=== PATIENT | male | born 1955 | race Caucasian/White ===

== ENCOUNTER 2019-08-29 08:28 | Observation (INO) ==
[2019-08-29] MEDS ORDERED: NS 1,000 ML IV ONE ×2 (08:38→10:33)
[2019-08-29] MEDS ORDERED: ATIVAN IV ONE ×3 (08:45→10:07)
--- NOTE | 2019-08-29 08:45 | EKG Report ---
Test Performed on : 08/29/2019 08:40:42 AM Test Reason : overdose Blood Pressure : / mmHG Vent. Rate : 132 BPM Atrial Rate : 132 BPM P-R Int : 148 ms QRS Dur : 086 ms QT Int : 298 ms P-R-T Axes : 000 160 142 degrees QTc Int : 441 ms Sinus tachycardia. Left posterior fascicular block Inferior infarct , age undetermined Abnormal ECG When compared with ECG of 25-JUN-2017 01:28, Vent. rate has increased BY 51 BPM Left posterior fascicular block is now present Inferior infarct is now present Unconfirmed Result
--- NOTE | 2019-08-29 08:46 | PROVIDER DOCUMENTATION ---
HPI-Psychological Disorder - General Stated Complaint: OVERDOSE Time Seen by Provider: 08/29/19 08:33 Source: family, EMS Allergies/Adverse Reactions: Patient Allergies Allergy/AdvReac Type Severity Reaction Status Date / Time No Known Allergies Allergy Verified 08/29/19 09:47 Home Medications: Home Medication List Medication Instructions Recorded Confirmed Last Taken Type Bupropion [Wellbutrin] 100 mg PO QAM 09/20/14 08/29/19 09/18/14 History Omeprazole [Prilosec] 20 mg PO DAILY@0700 09/20/14 08/29/19 09/18/14 History Amlodipine [Norvasc] 1 tab PO DAILY 08/29/19 08/29/19 Unknown History Aripiprazole [Abilify] 1 tab PO DAILY 08/29/19 08/29/19 Unknown History Armodafinil [Nuvigil] 1 tab PO QAM 08/29/19 08/29/19 Unknown History Atorvastatin Calcium [Lipitor] 10 mg PO QHS 08/29/19 08/29/19 Unknown History Ibuprofen 1 tab PO PRN PRN 08/29/19 08/29/19 Unknown History Irbesartan [Avapro] 1 tab PO DAILY 08/29/19 08/29/19 Unknown History Lamotrigine [Lamotrigine ER] 1 tab PO DAILY 08/29/19 08/29/19 Unknown History Lurasidone HCl [Latuda] 1 tab PO DAILY 08/29/19 08/29/19 Unknown History Olanzapine [Zyprexa Zydis] 1 tab PO DAILY PRN 08/29/19 08/29/19 Unknown History Prednisone 1 tab PO DAILY PRN 08/29/19 08/29/19 Unknown History Propranolol [Inderal] 0.5 tab PO DAILY 08/29/19 08/29/19 Unknown History - History of Present Illness-Psych Nature of Presenting Problem: ED RN with bipolar disorder, recently quit job, having marital problems, OD on 40 5mg olanzapine about 1-1.5 hours [employer] in a suicide attempt. No history of SI in the past. Has had several admissions, 6-7 years ago for BPDO. Brought in by EMS. states he is also on other psych meds, unsure if he took any of those. Onset/Duration: reports: 1-3 hours ago Timing: reports: still present, getting worse Severity: reports: severe Situational problems related to:: reports: spouse, lost job Psychiatric Complaints: reports: altered mental status, depressed, suicidal ideation Substance Use: reports: none/never Previous psych related hospitalizations?: Yes Patient arrived by:: EMS called by spouse/family Similar Symptoms Previously?: No Recently seen or treated by another doctor?: No - Suicidal Ideation Suicide Risk Assessment: male sex, depressed, organized plan, bi-polar, frightened friends-family Clinician's estimation of suicide risk?: high risk Suicidal Attempt Method: reports: Overdose Review of Systems - Adult - REVIEW OF SYSTEMS - ADULT Constitutional: reports: no symptoms reported Eyes: reports: no symptoms reported Ears, Nose, Mouth & Throat: reports: no symptoms reported Cardiovascular: reports: no symptoms reported Respiratory: reports: no symptoms reported Gastrointestinal: reports: no symptoms reported Genitourinary: reports: no symptoms reported Musculoskeletal: reports: no symptoms reported Integumentary: reports: no symptoms reported Neurological: reports: no symptoms reported Psychiatric: reports: no symptoms reported Endocrine: reports: no symptoms reported Hematologic/Lymphatic: reports: no symptoms reported Allergic/Immunologic: reports: no symptoms reported All Other Systems: Reviewed and Negative Past History - Adult - PAST MEDICAL HISTORY-ADULT Review of Records: reports: Old Records Reviewed (Last psych admission 2012), Nursing Assessment Review, Medications Reviewed, Social history reviewed & non- contributory. Major Childhood Illnesses: reports: denies history Cardiovascular: reports: denies history Respiratory: reports: denies history Gastrointestinal: reports: denies history Obstetrical/Gynecological: reports: denies history Genitourinary: reports: denies history Musculoskeletal: reports: denies history Neurological: reports: denies history Psychiatric: reports: bipolar, depression, psychiatric problems Endocrine/Immune: reports: denies history Other Conditions: reports: denies history - PRIOR SURGERIES/PROCEDURES Surgical/Procedure History: reports: reviewed, not pertinent - IMMUNIZATION STATUS Childhood Immunizations: UTD Flu Vaccine: UTD - FAMILY HISTORY Family History: reviewed, not pertinent - SOCIAL HISTORY Smoking: quit greater than 1 year, cigarettes Substance Use: none/never Alcohol Use Frequency: occasionally Living Situation: family Physical Exam-Psych Focus - Physical Exam-Psych Initial Vital Signs Reviewed: Yes Appearance: impaired insight, impaired recent memory, impaired remote memory, lethargic (reaching for objects in air), moderate distress Neurological: alert, 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 negative: oriented x 3 Behavior/Eye Contact/Speech: refused to answer (unable) Thoughts/Hallucinations: visual hallucinations HENMT: normocephalic/atraumatic. negative: moist mucous membranes (dry) Neck: non-tender, full range of motion, supple, normal inspection Respiratory: chest non-tender, lungs clear, normal breath sounds, no pleuratic chest pain, no respiratory distress, no accessory muscle use, increased rate Cardiovascular: normal peripheral pulses, regular rate, rhythm, no edema, no gallop, no JVD, tachycardia Abdominal Exam: normal bowel sounds, non tender, soft, no organomegaly, no pulsatile mass Lymphatic: no adenopathy Back Exam: normal inspection, no vertebral tenderness Extremity: normal range of motion, non-tender, normal inspection, no pedal edema , no calf tenderness, normal capillary refill Integumentary: normal color, normal turgor Progress - PLAN OF CARE/RESULTS Progress/Plan/Lab Results: Vital Signs - 8 hr 08/29/19 08:53 Pulse Rate 132 H Respiratory Rate 26 H Blood Pressure 179/157 O2 Sat by Pulse Oximetry 95 Laboratory Results - last 24 hr 08/29/19 08/29/19 08/29/19 08:44 08:50 08:50 WBC RBC Hgb Hct MCV MCH MCHC RDW Std Deviation Plt Count MPV Immature Gran % (Auto) Neut % (Auto) Lymph % (Auto) [place] % (Auto) Eos % (Auto) Baso % (Auto) Immature Gran # (Auto) Neut # (Auto) Lymph # (Auto) [place] # (Auto) Eos # (Auto) Baso # (Auto) PT INR PTT (Actin FS) Specimen Type Sample Site pH pCO2 pO2 HCO3 Base Excess Oxyhemoglobin ABG O2 Sat (Calculated) ABG O2 Saturation ABG Carboxyhemoglobin ABG Methemoglobin [place] Test A-a O2 Difference Total Hemoglobin Lactate Liter Flow Blood Gas Modality FiO2 % POC Glucose 108 H Troponin T High Sens Urine Source Urine Color Urine Turbidity Urine pH Ur Specific Rock Urine Protein Ur Glucose (Stick) Ur Ketones (Stick) Urine Blood Urine Nitrite Urine Bilirubin Urobilinogen Dipstick Urine Leukocytes Urine WBC (Auto) Urine RBC (Auto) U Epithel Cells (Auto) Urine Bacteria (Auto) Urine Opiates Screen NONE DETECTED Ur Oxycodone Screen NONE DETECTED Ur Methadone, Qual NONE DETECTED Ur Barbiturates Screen NONE DETECTED Ur Phencyclidine Scrn NONE DETECTED Ur Amphetamines Screen NONE DETECTED U Benzodiazepines Scrn NONE DETECTED Urine Cocaine Screen NONE DETECTED U Cannabinoids Screen PRESUMPTIVE POSITIVE A Plasma/Serum Ethyl Alc 08/29/19 08/29/19 08/29/19 08:50 08:50 08:50 WBC 7.71 RBC 5.45 Hgb 15.5 Hct 46.4 MCV 85.1 MCH 28.4 MCHC 33.4 RDW Std Deviation 13.1 Plt Count 182 MPV 10.7 H Immature Gran % (Auto) 0.4 Neut % (Auto) 57.8 Lymph % (Auto) 30.1 [place] % (Auto) 9.5 H Eos % (Auto) 1.7 Baso % (Auto) 0.5 Immature Gran # (Auto) 0.03 Neut # (Auto) 4.46 Lymph # (Auto) 2.32 [place] # (Auto) 0.73 H Eos # (Auto) 0.13 Baso # (Auto) 0.04 PT INR PTT (Actin FS) Specimen Type Sample Site pH pCO2 pO2 HCO3 Base Excess Oxyhemoglobin ABG O2 Sat (Calculated) ABG O2 Saturation ABG Carboxyhemoglobin ABG Methemoglobin [place] Test A-a O2 Difference Total Hemoglobin Lactate Liter Flow Blood Gas Modality FiO2 % POC Glucose Troponin T High Sens 8 Urine Source CATH Urine Color STRAW Urine Turbidity CLEAR Urine pH 7.5 Ur Specific Rock 1.010 Urine Protein NEGATIVE Ur Glucose (Stick) NEGATIVE Ur Ketones (Stick) NEGATIVE Urine Blood NEGATIVE Urine Nitrite NEGATIVE Urine Bilirubin NEGATIVE Urobilinogen Dipstick NORMAL Urine Leukocytes NEGATIVE Urine WBC (Auto) <10 Urine RBC (Auto) <10 U Epithel Cells (Auto) <10 Urine Bacteria (Auto) NEGATIVE Urine Opiates Screen Ur Oxycodone Screen Ur Methadone, Qual Ur Barbiturates Screen Ur Phencyclidine Scrn Ur Amphetamines Screen U Benzodiazepines Scrn Urine Cocaine Screen U Cannabinoids Screen Plasma/Serum Ethyl Alc 08/29/19 08/29/19 08:50 09:10 WBC RBC Hgb Hct MCV MCH MCHC RDW Std Deviation Plt Count MPV Immature Gran % (Auto) Neut % (Auto) Lymph % (Auto) [place] % (Auto) Eos % (Auto) Baso % (Auto) Immature Gran # (Auto) Neut # (Auto) Lymph # (Auto) [place] # (Auto) Eos # (Auto) Baso # (Auto) PT 12.5 INR 0.93 PTT (Actin FS) 30.2 Specimen Type ARTERIAL Sample Site R BRACHIAL pH 7.48 H pCO2 40 pO2 74 HCO3 29.4 H Base Excess 5.8 H Oxyhemoglobin 95.0 ABG O2 Sat (Calculated) 22.2 ABG O2 Saturation 97.5 ABG Carboxyhemoglobin 1.80 ABG Methemoglobin 0.9 Keon Test NO A-a O2 Difference 76.0 Total Hemoglobin 16.6 Lactate 1.70 Liter Flow 2.0 Blood Gas Modality CANNULA FiO2 % 28.0 POC Glucose Troponin T High Sens Urine Source Urine Color Urine Turbidity Urine pH Ur Specific Rock Urine Protein Ur Glucose (Stick) Ur Ketones (Stick) Urine Blood Urine Nitrite Urine Bilirubin Urobilinogen Dipstick Urine Leukocytes Urine WBC (Auto) Urine RBC (Auto) U Epithel Cells (Auto) Urine Bacteria (Auto) Urine Opiates Screen Ur Oxycodone Screen Ur Methadone, Qual Ur Barbiturates Screen Ur Phencyclidine Scrn Ur Amphetamines Screen U Benzodiazepines Scrn Urine Cocaine Screen U Cannabinoids Screen Plasma/Serum Ethyl Alc Orders Category Date Time Status Cardiac Monitoring DIRECTED Care 08/29/19 08:36 Active Finger Stick Blood Sugar (ED) DIRECTED Care 08/29/19 08:36 Completed [place] Cath Insertion ORDERED Care 08/29/19 08:37 Active IV Insertion NOW Care 08/29/19 08:54 Active NEWS Score >or=5:Order NEWS Bundle S.O. NOW Care 08/29/19 08:54 Active Notify Provider of NEWS Score NOW Care 08/29/19 08:54 Active Nursing- Obtain EKG once Care 08/29/19 10:04 Active ABG [RESP] Routine Lab 08/29/19 09:10 Completed ACETAMINOPHEN [TDM] Stat Lab 08/29/19 08:50 Received ALCOHOL BLOOD Stat Lab 08/29/19 08:50 Completed BLOOD CULTURE [BLDCUL] Stat Lab 08/29/19 08:54 Uncollected CBC WITH ELECTRONIC DIFF [HEME] Stat Lab 08/29/19 08:50 Completed CK TOTAL [CHEM] Stat Lab 08/29/19 08:50 Received COMPREHENSIVE METABOLIC PANEL [CHEM] Stat Lab 08/29/19 08:50 Received MAGNESIUM [CHEM] Stat Lab 08/29/19 08:50 Received PROTIME WITH INR [COAG] Stat Lab 08/29/19 08:50 Completed PTT [COAG] Stat Lab 08/29/19 08:50 Completed SALICYLATES [TDM] Stat Lab 08/29/19 08:50 Received TROPONIN T HIGH SENSITIVITY Stat Lab 08/29/19 08:50 Completed URINALYSIS [URINALYSIS] Stat Lab 08/29/19 08:50 Completed URINE DRUG SCREEN Stat Lab 08/29/19 08:50 Completed 0.9% Sodium Chloride Inj [Ns] 1,000 ml Med 08/29/19 08:38 Discontinued IV 999 mls/hr Lorazepam [Ativan] Med 08/29/19 08:45 Discontinued 1 mg IV NOW ONE Lorazepam [Ativan] Med 08/29/19 09:49 Discontinued 1 mg IV NOW ONE Lorazepam [Ativan] Med 08/29/19 10:07 Discontinued 2 mg IV NOW ONE O2 Per Protocol Stat Oth 08/29/19 08:54 Completed Overdose (suspected) Stat Oth 08/29/19 08:36 Ordered EKG [EKG] Stat Ther 08/29/19 08:36 Draft EKG [EKG] Stat Ther 08/29/19 10:04 Ordered Result Diagrams: 08/29/19 08:50 - REASSESSMENT Reassessment #1 Time Reassessed: 10:20 Status: unchanged (Patient becoming more agitated, has received 4mg lorazepam. Will admit to hospitalist) Reassessment #2 Time Reassessed: 10:32 Status: unchanged (very hypertensive, will give meds that should not affect QT interval. (IV enalapril and hydralazine)) - EKG 1 Time of EKG reading by physician:: 08:44 EKG Read and Signed by:: Dedrick Victoria EKG Interpretation (*Must complete 3 of following elements*): Abnormal Rate: 132 Rhythm: sinus tach [place]: normal QRS: other (left posterior block) [place] Interval: normal ST Wave: non-specific ST changes (with normal QT/QTc) - CONSULTS/PCP/HOSPITALIST Notification #1 *Consult/PCP/Hospitalist*: [facility] Time Discussed: 08:45 Reason/Comments: supportive care, consider repeat EKG in 6 hours, BZDs are OK for agitation/ Consult Disposition: other #2 Consult: STEFAN Hays, hospitalist Time Discussed: 10:28 Reason/Comments: Admit to Dr. Gary Consult Disposition: Will see in ED, Admit Departure - Departure Date of Disposition Decision: 08/29/19 Time of Disposition Decision: 10:21 DIAGNOSIS: Suicide attempt by drug overdose, Bipolar affective, depress, severe, Altered mental status associated with intoxication, Hypertensive urgency, malignant Intentional olanzapine overdose Qualifiers: Encounter type: initial encounter Qualified Code(s): T43.592A - Poisoning by other antipsychotics and neuroleptics, intentional self-harm, initial encounter Disposition: ADMITTED INPATIENT 09 Certified Medical Emergency: Emergent Condition: Fair Referrals and Follow-Ups: Rene Helms DO [Primary Care Provider] - - Critical Care Note This patient required my direct & personal management of CC.: Yes Total Time (mins): 45 Critical Care Statement: This patient required my direct personal management to treat or rule out processes, the absence of which, could potentiallly result in sudden, clinically significant life or limb threatening deterioration. Attestation - Physician/ LUZ Attestation Patient care was provided by Advanced Practice Provider:: No The physician spent face to face time with patient:: Yes Advanced Practice Provider documentation review:: Supervising physician onsite and consulted in the evaluation and care of this patient. The physician did have a face to face encounter with the patient.
[2019-08-29 09:16] LABS: ALLEN TEST NO; BE 5.8 mmoll (-3.0-3.0); BLOOD TYPE ARTERIAL; HCO3-(ACT) 29.4 mmoll (20.0-26.0); METHB 0.9 % (0.0-1.5); MODALITY CANNULA; O2(CT) 22.2 mL/dL (15.0-23.0); PCO2(98.6) 40 mmHg (35-45); PO2(98.6) 74 mmHg (60-100); SAMPLE BLOOD; SAO2 97.5 % (95.0-100.0); THB 16.6 g/dL (11.5-17.4); pH(98.6) 7.48 (7.35-7.45)
[2019-08-29 09:34] LABS: URINE SOURCE CATH
[2019-08-29 09:43] LABS: BASO# 0.04 X1000 (0.0-0.2); BASO% 0.5 % (0.0-0.8); EOS# 0.13 X1000 (0.0-0.7); EOS% 1.7 % (0.0-10.0); HEMATOCRIT 46.4 % (42.0-52.0); HEMOGLOBIN 15.5 g/dL (14.0-18.0); IMM GRAN# 0.03 X1000 (0.0-0.04); IMM GRAN% 0.4 % (0.0-0.5); LYMPH# 2.32 X1000 (1.2-3.4); LYMPH% 30.1 % (20.5-51.1); MCH 28.4 PG (27-31); MCHC 33.4 g/dL (33-37); MCV 85.1 FL (81-99); MONO# 0.73 X1000 (0.11-0.59); MONO% 9.5 % (1.7-9.3); MPV 10.7 FL (7.4-10.4); NEUT# 4.46 X1000 (1.4-6.5); NEUT% 57.8 % (42.2-75.2); PLT 182 X1000 (130-400); RBC 5.45 XMIL (4.7-6.1); RDW 13.1 % (11.5-14.5); WBC 7.71 X1000 (4.8-10.8)
[2019-08-29 09:45] LABS: BILIRUBIN URINE NEGATIVE (NEGATIVE); BLOOD URINE NEGATIVE (NEGATIVE); COLOR STRAW; GLUCOSE URINE NEGATIVE (NEGATIVE); KETONE URINE NEGATIVE (NEGATIVE); LEUKOCYTES URINE NEGATIVE (NEGATIVE); NITRITE URINE NEGATIVE (NEGATIVE); PH URINE 7.5; PROTEIN URINE NEGATIVE (NEGATIVE); TURBIDITY URINE CLEAR (CLEAR); UROBILINOGEN URINE NORMAL (NORMAL)
[2019-08-29 09:47] LABS: UR EPITHELIAL CELLS <10 /HPF (<10); URINE BACTERIA NEGATIVE /HPF; URINE RBC <10 /HPF (<10); URINE WBC <10 /HPF (<10)
[2019-08-29 09:51] LABS: INR 0.93; PROTIME 12.5 Seconds (11.0-16.0)
[2019-08-29 09:52] LABS: PTT 30.2 Seconds (22.3-41.8)
[2019-08-29 09:58] LABS: UR AMPHETAMINES QUAL NONE DETECTED (NONE DETECT); UR BARBITUATES QUAL NONE DETECTED (NONE DETECT); UR BENZODIAZEPIN QUAL NONE DETECTED (NONE DETECT); UR CANNABINOIDS QUAL PRESUMPTIVE POSITIVE (NONE DETECT); UR COCAINE QUAL NONE DETECTED (NONE DETECT); UR METHADONE QUAL NONE DETECTED (NONE DETECT); UR OPIATES QUAL NONE DETECTED (NONE DETECT); UR OXYCODONE QUAL NONE DETECTED (NONE DETECT); UR PCP QUAL NONE DETECTED (NONE DETECT)
[2019-08-29] MEDS ORDERED: VASOTEC IV ONE (10:33)
[2019-08-29] MEDS ORDERED: APRESOLINE IV ONE (10:33)
--- NOTE | 2019-08-29 10:42 | ED EKG INTERP ---
EKG Interpretation - EKG Time of EKG reading by physician:: 10:41 EKG Read and Signed by:: Dedrick Victoria EKG Interpretation (*Must complete 3 of following elements*): Abnormal Rate: 134 Rhythm: sinus tach [place]: normal QRS: normal [place] Interval: normal ST Wave: normal Prior EKG Comparison: unchanged from prior Comments: QT/QTc normal Attestation - Physician/ LUZ Attestation Patient care was provided by Advanced Practice Provider:: No The physician spent face to face time with patient:: Yes Advanced Practice Provider documentation review:: Supervising physician onsite and consulted in the evaluation and care of this patient. The physician did have a face to face encounter with the patient.
[2019-08-29 10:48] LABS: ACETAMINOPHEN < 1.2 ug/mL (10-30); AGAP 15; ALB/GLOB RATIO 1.8; ALBUMIN 4.4 g/dL (3.5-5.0); ALKALINE PHOSPHATASE 93 U/L (32-122); BUN 16 mg/dL (8-22); CALCIUM 9.6 mg/dL (8.8-10.2); CHLORIDE 103 mmol/L (98-107); CK TOTAL 44 U/L (24-204); COSMO 291; CREATININE 1.2 mg/dL (0.7-1.2); ESTIMATED GFR > 60; GLUCOSE 119 mg/dL (70-104); GOT 16 U/L (10-34); GPT 25 U/L (10-44); POTASSIUM 4.1 mmol/L (3.5-5.1); SALICYLATES < 3.00 mg/dL (3-10); SODIUM 145 mmol/L (136-145); TCO2 27 mmol/L (25-35); TOTAL BILIRUBIN 0.27 mg/dL (0.20-1.00); TOTAL PROTEIN 6.9 g/dL (6.3-8.3)
[2019-08-29] MEDS ORDERED: ATIVAN IV PRN (11:33)
[2019-08-29] MEDS ORDERED: APRESOLINE IV PRN (11:33)
[2019-08-29] MEDS ORDERED: ZOFRAN IV PRN (11:33)
[2019-08-29] MEDS ORDERED: LOVENOX SUBQ SCH (11:33)
--- NOTE | 2019-08-29 11:39 | EKG Report ---
Test Performed on : 08/29/2019 10:20:14 AM Test Reason : this is a repeat Blood Pressure : / mmHG Vent. Rate : 134 BPM Atrial Rate : 134 BPM P-R Int : 144 ms QRS Dur : 086 ms QT Int : 296 ms P-R-T Axes : 038 010 034 degrees QTc Int : 442 ms Sinus tachycardia. Otherwise normal ECG When compared with ECG of 29-AUG-2019 08:40, (Unconfirmed) Left posterior fascicular block is no longer present T wave inversion no longer evident in Lateral leads Unconfirmed Result
[2019-08-29] MEDS: NS 1,000 ML IV SCH (12:18)
--- NOTE | 2019-08-29 13:39 | HISTORY AND PHYSICAL ---
PRIMARY CARE PHYSICIAN: Dr. Rene Helms CHIEF COMPLAINT: Overdose of 40 tablets of 5 mg olanzapine approximately 1-1/2 hours prior to arrival as a suicide gesture. HISTORY OF PRESENTING ILLNESS: This is a 64-year-old male who presents to [facility] via EMS after he apparently had an argument with his and she left to gather her thoughts for a moment and when she came back, the patient told her that he had taken 40 tablets of his 5 mg olanzapine about an hour and a half prior to arriving in a suicide gesture. Currently, patient is somnolent, unable to answer any questions. 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 He has a history of bipolar disorder and has made suicidal gestures in the past according to the . The ER physician spoke with Poison Control after reviewing his labs and EKG and felt that supportive care was warranted and to consider repeating his EKG in 6 hours and that benzodiazepines were okay for his agitation as he did become agitated, not long after arriving and required Ativan a total of 4 mg IV. He has also been noted to have an elevated blood pressure. When he arrived, it was 179/157. Repeat was 170/162. Currently, it is in the 160s over 110s. He has been given some hydralazine 10 mg IV x1, and he has also received Vasotec 1.25 mg IV x1, and he will be admitted to the intensive care unit for further evaluation and treatment. PAST MEDICAL HISTORY: Bipolar disorder, hyperlipidemia, hypertension, GERD. PAST SURGICAL HISTORY: Cholecystectomy. FAMILY HISTORY: His mother had heart disease. Father and sister had diabetes. SOCIAL HISTORY: Currently lives with family, is a former smoker. states he does not drink or do drugs, but it is noted his urine drug screen was presumptive positive for cannabinoids, but the states that it is possible that he has used CBD oil. ALLERGIES: He has no known drug allergies. MEDICATIONS: We will hold at this time as he is unable to take any p.o. medications, but he takes Norvasc 10 mg p.o. daily, aripiprazole 10 mg p.o. daily, Nuvigil 250 mg p.o. q.a.m., Lipitor 10 mg p.o. at bedtime, bupropion 100 mg p.o. q.a.m., ibuprofen 100 mg p.o. p.r.n., Avapro 300 mg p.o. daily, lamotrigine 200 mg p.o. daily, Latuda 60 mg p.o. daily. Olanzapine Zydis 5 mg 1 p.o. daily p.r.n., Prilosec 20 mg p.o. daily, prednisone 10 mg p.o. daily p.r.n. and Inderal 20 mg a half a tablet p.o. daily. LABORATORY DATA: Showed a white blood cell count of 7.71, hemoglobin 15.5, hematocrit 46.4, platelets 182,000. PT and INR 12.5 and 0.93. ABG with a pH of 7.48, pCO2 of 40, PO2 74, bicarb 29.4. This was on 2 L via nasal cannula. Sodium 145, potassium 4.1 chloride 103, CO2 27, BUN of 16, creatinine 1.2, glucose 119, magnesium 2.0. Cardiac enzymes were negative. Urinalysis was negative. Urine drug screen was presumptive positive for cannabinoids. Serum alcohol level showed none detected. EKG showed sinus tachycardia at 132. REVIEW OF SYSTEMS: Unable to obtain from patient at this time. PHYSICAL EXAMINATION: VITAL SIGNS: On arrival, he had a pulse of 132, respirations 26, blood pressure 179/157, saturating 95% on room air. GENERAL: This is a 64-year-old male lying in the bed unable to answer any questions at this time. Responds minimally to sternal rub. Noncoherent speech. HEENT: Normocephalic, atraumatic. Normal ENT inspection. Oropharynx and nares are clear. EYES: Pupils are equal, round, reactive to light and accommodation. Extraocular movements are intact. NECK: Normal inspection; normal range of motion. LUNGS: Clear to auscultation bilaterally with equal lung expansion and chest wall movement. HEART: With regular rate and rhythm. No murmurs, rubs, or gallops. ABDOMEN: Soft, nontender, nondistended. Bowel sounds are present x4 quadrants. MUSCULOSKELETAL: Unable to assess strength, but he is moving his arms and legs due to being agitated. NEUROLOGICAL: Unable to assess at this time. ASSESSMENT: 1. Drug overdose. 2. Suicide attempt. 3. Hypertension. 4. Bipolar disorder, history of. PLAN: He will be admitted to the intensive care unit, placed on telemetry, O2 per protocol, NPO. We will do Ativan 1 mg IV q.4 hours p.r.n. for agitation, hydralazine 10 mg IV q.4 hours p.r.n. for systolic blood pressure greater than 190, diastolic greater than 100. Lovenox 40 mg subcutaneous q.24 hours for DVT prophylaxis, Zofran 4 mg IV q.4 hours p.r.n. Recheck a CBC, BMP in the a.m. and once patient is more alert, then we will at that time consult [facility]. Further orders after being seen by attending. Dictated by STEFAN Gandara for Keon Gary MD cc: STEFAN Gandara MD Thomas E. Lockard, DO
[2019-08-29 17:53] LABS: URINE SOURCE CATH
[2019-08-29 17:57] LABS: BILIRUBIN URINE NEGATIVE (NEGATIVE); BLOOD URINE SMALL (NEGATIVE); COLOR STRAW; GLUCOSE URINE NEGATIVE (NEGATIVE); KETONE URINE NEGATIVE (NEGATIVE); LEUKOCYTES URINE NEGATIVE (NEGATIVE); NITRITE URINE NEGATIVE (NEGATIVE); PH URINE 8.5; PROTEIN URINE TRACE mg/dL (NEGATIVE); SP GRAVITY URINE 1.013; TURBIDITY URINE CLEAR (CLEAR); UROBILINOGEN URINE NORMAL (NORMAL)
[2019-08-29 17:58] LABS: UR EPITHELIAL CELLS <10 /HPF (<10); URINE BACTERIA NEGATIVE /HPF; URINE WBC <10 /HPF (<10)
--- NOTE | 2019-08-29 19:26 | HISTORY AND PHYSICAL ---
HISTORY OF PRESENT ILLNESS: He overdosed on 40 tablets we estimate, of 5 mg olanzapine approximately 1-1/2 hours before arrival. By the 's report, this was a suicide gesture. A 64- year-old white male presented to [facility] [place] via EMS. Apparently he had an argument with his and she had left to gather her thoughts for a moment. When she came back the patient told her that he had taken 40 tablets of 5 mg olanzapine an hour and a half prior to arriving. Currently the patient is somnolent when admitted, unable answer questions. 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 He was supposed to start that job on Wednesday. He has a history of bipolar disorder and has made suicide gestures in the past. I spoke with Poison Control after reviewing his labs and EKG. [place] that supportive care is warranted, and so we will repeat an EKG every 6 hours. [place] that the benzodiazepines were okay for his agitation, as he did get a little agitated initially in the emergency room. He required some Ativan, a total of 4 mg. Noted to have an elevated blood pressure, 179/157, repeat was 170/162. Given some hydralazine 10 mg IV x1, Vasotec 1.25 mg IV x1. PAST MEDICAL HISTORY: Bipolar disorder, hyperlipidemia, hypertension, gastroesophageal reflux disease. PLAN: 1. Move him to the intensive care unit for drug overdose and suicide attempt. 2. Hypertension. 3. History of bipolar. On review of his orders, he is on Lovenox 40 mg subcutaneous q.24 hours; Apresoline 10 mg IV q.4 hours p.r.n.; normal saline at 75 mL/h; Vasotec 1.25 mg IV given one time; Apresoline 10 mg given 1 time; we will use IV Ativan as needed. LABORATORY DATA: On review of his lab, white count is 7710, hematocrit 46, platelet count 182,000. Sodium 145, potassium 4.1, chloride 103, BUN 16, creatinine 1.2, calcium 9.6, albumin 4.4. cc: Keon Gary MD
[2019-08-30] MEDS: NS 1,000 ML IV SCH (00:32)
--- NOTE | 2019-08-30 06:11 | PROGRESS NOTE ---
DATE: 08/30/2019 The patient's attending physician is Dr. Gary. I was notified at 04:00 by the patient's nurse that the patient was demanding to leave. Upon reviewing the patient's chart, Mr. Stafford is a 64- year-old male that was admitted mid afternoon yesterday on 08/29/2019. Reportedly, the patient did have an intentional overdose by taking 40 tablets of Zyprexa 5 mg tablets. 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 He does have a history of bipolar disorder with reported suicide gestures previously. From what I understand, he has received inpatient treatment at [facility] in the past. According to the patient's history and physical, him and his did get into an argument today, and the patient's did leave the house to gather her thoughts. When she came back, the patient reported to her that he had taken 40 of his 5 mg Zyprexa tablets. He was brought to the ER for further evaluation. The patient was noted to be somnolent and was unable to answer questions upon his initial admission. At this time, the patient's mentation has improved. He is awake and alert. He is alert and oriented to person, place, time, and situation. He is now denying at this time that he took the medication with the intent to harm himself. He states that he was taking it to try to get his 's attention. The patient's nurse as well as myself did go to his bedside, and we did try to discuss with the patient the importance of him staying and being evaluated not only for medical safety given the medication that he took but as well as we were concerned about his safety of him going home given that he did take an overdose of medications. The patient stated that he still wanted to leave. At this time, I did talk to Dr. Abraham, the attending physician for the hospitalist service, and did update him on the patient's condition. He did state that he was concerned about the patient as well, and did want him to stay to receive treatment and to receive a psychiatric evaluation. He did want to try to get a pickup order if the patient was not in agreement with staying. At this time, we did contact Baldemar [*]. He is the [facility] service liaison representative. 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 We expressed to him our concerns that he was knowledgeable in the adverse effects of taking an overdose of Zyprexa, and he if he took 40 tablets of this medication that it may not have been just attention seeking behavior that we were concerned that he was intentionally trying to harm himself. At this time, Baldemar [*]has issued a pickup order for the patient so that he can receive psychiatric evaluation. We have discussed this with the patient. He is aware that he does need to stay until he receives a psychiatric evaluation. I will update his attending physician, Dr. Gary, in the morning as well. Once the patient has been medically cleared, we will place a consult for psychiatric evaluation to be performed. Further orders and recommendations pending hospital course, diagnostic studies, and physician evaluation. Dictated by STEFAN Nieto for Stephan Abraham MD cc: Stephan Abraham MD
[2019-08-30 07:50] LABS: BASO# 0.04 X1000 (0.0-0.2); BASO% 0.5 % (0.0-0.8); EOS# 0.19 X1000 (0.0-0.7); EOS% 2.1 % (0.0-10.0); HEMATOCRIT 43.5 % (42.0-52.0); HEMOGLOBIN 14.5 g/dL (14.0-18.0); IMM GRAN# 0.02 X1000 (0.0-0.04); IMM GRAN% 0.2 % (0.0-0.5); LYMPH# 2.11 X1000 (1.2-3.4); LYMPH% 23.8 % (20.5-51.1); MCH 29.1 PG (27-31); MCHC 33.3 g/dL (33-37); MCV 87.3 FL (81-99); MONO# 0.79 X1000 (0.11-0.59); MONO% 8.9 % (1.7-9.3); MPV 10.9 FL (7.4-10.4); NEUT# 5.73 X1000 (1.4-6.5); NEUT% 64.5 % (42.2-75.2); PLT 204 X1000 (130-400); RBC 4.98 XMIL (4.7-6.1); RDW 13.4 % (11.5-14.5); WBC 8.88 X1000 (4.8-10.8)
[2019-08-30 08:08] LABS: AGAP 8; BUN 13 mg/dL (8-22); CALCIUM 8.6 mg/dL (8.8-10.2); CHLORIDE 109 mmol/L (98-107); COSMO 281; ESTIMATED GFR > 60; GLUCOSE 96 mg/dL (70-104); POTASSIUM 4.5 mmol/L (3.5-5.1); SODIUM 141 mmol/L (136-145); TCO2 24 mmol/L (25-35)
--- NOTE | 2019-08-30 11:11 | DISCHARGE SUMMARY ---
ADMISSION DATE: 08/29/2019 DISCHARGE DATE: 08/30/2019 PRIMARY CARE PHYSICIAN: Rene Helms DO. HISTORY AND HOSPITAL COURSE: This is a 64-year-old. He took we estimate 40 tablets of 5 mg of olanzapine. He had apparently gotten in an argument with his by report and she had left for a little bit of time and he reported that he had taken 40 tablets of olanzapine. He was very lethargic, initially he was a little agitated when he came in. Gave him some Ativan but he was pretty sleepy for a good 24 hours. He is awake this morning. He denies any suicide feelings or ideations. No homicidal ideations. He refuses to go or be evaluated by psych facility and he wants to go home. His is at the bedside, so his hemodynamics look good, remained in sinus rhythm, blood pressure looks good and no sign of cardiac or renal dysfunction. He had no focal neurologic deficits and so we will let him go home. MEDICATIONS: He is taking Norvasc 1 tablet daily, Abilify I think 5 mg daily, Nuvigil which is armodafinil 1 tablet daily, Lipitor 10 mg q.a.m., Wellbutrin 100 mg p.o. q.a.m., Avapro 1 a day, lamotrigine 1 tablet daily - I think it is lamotrigine ER, Latuda 1 tablet daily, Zyprexa which is olanzapine 1 tablet daily p.r.n., Prilosec 20 mg a day, prednisone 1 tab daily p.r.n., and Inderal 0.5 mg or half tablet daily. cc: Keon Gary MD
[2019-08-30 11:35] VITALS: BP 126/85
== END 2019-08-30 12:50 | disposition home or self-care (01) ==
LOC: SUPCPDRO → ED 08:28 → OPS 10:57 → ICU 10:57 → INTOOBSV 10:57 → OBSVTOIN 10:57 → OPS 08-30 12:50
PROVIDERS: ATTEND Emergency Medicine

== ENCOUNTER 2019-08-30 18:23 | Inpatient (IN) ==
[2019-08-30] MEDS ORDERED: NS 1,000 ML IV ONE (18:53)
[2019-08-30] MEDS ORDERED: DUONEB (A & A) INH ONE (19:09)
--- NOTE | 2019-08-30 19:15 | PROVIDER DOCUMENTATION ---
HPI-General Adult - General Chief Complaint: Intoxicated Stated Complaint: OVERDOSE Time Seen by Provider: 08/30/19 18:50 Source: patient Allergies/Adverse Reactions: Patient Allergies Allergy/AdvReac Type Severity Reaction Status Date / Time No Known Allergies Allergy Verified 08/29/19 09:47 Home Medications: Home Medication List Medication Instructions Recorded Confirmed Last Taken Type Bupropion [Wellbutrin] 100 mg PO QAM 09/20/14 08/29/19 09/18/14 History Omeprazole [Prilosec] 20 mg PO DAILY@0700 09/20/14 08/29/19 09/18/14 History Amlodipine [Norvasc] 1 tab PO DAILY 08/29/19 08/29/19 Unknown History Aripiprazole [Abilify] 1 tab PO DAILY 08/29/19 08/29/19 Unknown History Armodafinil [Nuvigil] 1 tab PO QAM 08/29/19 08/29/19 Unknown History Atorvastatin Calcium [Lipitor] 10 mg PO QHS 08/29/19 08/29/19 Unknown History Ibuprofen 1 tab PO PRN PRN 08/29/19 08/29/19 Unknown History Irbesartan [Avapro] 1 tab PO DAILY 08/29/19 08/29/19 Unknown History Lamotrigine [Lamotrigine ER] 1 tab PO DAILY 08/29/19 08/29/19 Unknown History Lurasidone HCl [Latuda] 1 tab PO DAILY 08/29/19 08/29/19 Unknown History Olanzapine [Zyprexa Zydis] 1 tab PO DAILY PRN 08/29/19 08/29/19 Unknown History Prednisone 1 tab PO DAILY PRN 08/29/19 08/29/19 Unknown History Propranolol [Inderal] 0.5 tab PO DAILY 08/29/19 08/29/19 Unknown History - History of Present Illness -Gen Adult Nature of Presenting Problems: Patient was discharged from the ICU today. He is bipolar and took 40 zyprexa and was admitted. He refused admission to [facility] but his talked him into coming to the ED. He is having confusion and an unsteady gait. He was slightly hypotensive in triage and hypoxic. Review of Systems - Adult - REVIEW OF SYSTEMS - ADULT ROS:: limited per condition Constitutional: reports: no symptoms reported. denies: chills, fever, fatique, night sweats, weight gain Eyes: reports: no symptoms reported. denies: discharge, dry eyes, decreased vision, eye pain, redness Ears, Nose, Mouth & Throat: reports: no symptoms reported. denies: ear discharge, hearing loss, tinnitus, epistaxis, mouth/dental pain, mouth swelling, hoarseness, throat pain, throat swelling Cardiovascular: reports: no symptoms reported. denies: chest pain, edema, heart murmur, poor circulation, PND, syncope Respiratory: reports: no symptoms reported. denies: chronic cough, cough, dyspnea on exertion, hemoptysis, pleurisy, shortness of breath, wheezing Gastrointestinal: reports: no symptoms reported. denies: abdominal pain, hematemesis, difficulty swallowing, nausea, poor appetite, rectal bleeding Genitourinary: reports: no symptoms reported. denies: dysuria, discharge, fr equency, flank pain, frequent UTI's, hesitency, incontinence, urinary retention, urgency Musculoskeletal: reports: no symptoms reported. denies: bone pain, frequent leg cramps, joint swelling, muscle aches, muscle weakness Integumentary: reports: no symptoms reported. denies: hives, hair loss, itching, mole changes, rash, skin sores/ulcer, skin thickening Neurological: reports: see HPI, dizziness/vertigo, loss of balance. denies: headache/migraines, paresthesia, seizure, slurred speech, syncope, tremors Psychiatric: reports: see HPI, anti-depressant use, depression, emotional p roblems, insomnia. denies: anxiety, alcohol/drug dependence, panic attacks, suicidal thoughts Endocrine: reports: no symptoms reported. denies: change in skin pigment, excessive sweating, goiter, heat intolerance, increased hunger, increased thirst, polyuria Hematologic/Lymphatic: reports: no symptoms reported. denies: blood clots, easy bruising, prolonged bleeding, swollen lymph nodes, transfusions Allergic/Immunologic: reports: no symptoms reported. denies: allergic reactions, allergic rhinitis, eczema, frequent infections, hay fever, hives, positive PPD, urticaria All Other Systems: Reviewed and Negative Past History - Adult - PAST MEDICAL HISTORY-ADULT Review of Records: reports: Old Records Reviewed, Nursing Assessment Review, Medications Reviewed, Social history reviewed & non-contributory. Major Childhood Illnesses: reports: denies history Cardiovascular: reports: HTN Respiratory: reports: denies history Gastrointestinal: reports: denies history Obstetrical/Gynecological: reports: denies history Genitourinary: reports: denies history Musculoskeletal: reports: denies history Neurological: reports: denies history Psychiatric: reports: bipolar, depression, psychiatric problems Endocrine/Immune: reports: denies history Other Conditions: reports: denies history - PRIOR SURGERIES/PROCEDURES Surgical/Procedure History: reports: reviewed, not pertinent - IMMUNIZATION STATUS Childhood Immunizations: UTD Flu Vaccine: UTD - FAMILY HISTORY Family History: reviewed, not pertinent - SOCIAL HISTORY Substance Use: none/never Alcohol Use Frequency: occasionally Living Situation: family Physical Exam-General - PHYSICAL EXAM-ADULT Initial Vital Signs Reviewed: Yes - CONSTITUTIONAL General Appearance: alert, no apparent distress - EYES Eyes: PERRL/EOMI, pink conjunctivae - HEAD, EARS, NOSE, MOUTH & THROAT HENMT: normocephalic/atraumatic, moist mucous membranes, normal ENT inspection - NECK Neck: non-tender, full range of motion, supple - RESPIRATORY Respiratory: chest non-tender, lungs clear, normal breath sounds - CARDIOVASCULAR Cardiovascular: normal peripheral pulses, regular rate, rhythm, no edema - GASTROINTESTINAL (ABDOMEN) Abdominal Exam: normal bowel sounds, non tender, soft - MUSCULOSKELETAL Back Exam: normal inspection, no CVA tenderness Extremity: normal range of motion, non-tender, other (unstable gait) - SKIN Integumentary: normal color, normal turgor, warm/dry - NEUROLOGIC 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, grossly normal - PSYCHIATRIC Psych/Mental Status: oriented x 3, disheveled, depressed affect (seems to have some confusion), other Progress - PLAN OF CARE/RESULTS Progress/Plan/Lab Results: Vital Signs - 8 hr 08/30/19 18:34 Temperature 97.8 F Pulse Rate 85 Respiratory Rate 20 Blood Pressure 107/74 O2 Sat by Pulse Oximetry 93 L Orders Category Date Time Status CHEST-2 VIEWS [RAD] Stat Exams 08/30/19 18:52 Ordered BLOOD CULTURE [BLDCUL] Stat Lab 08/30/19 18:52 Uncollected CBC WITH DIFF [HEME] Stat Lab 08/30/19 18:52 Ordered COMPREHENSIVE METABOLIC PANEL [CHEM] Stat Lab 08/30/19 18:52 Uncollected LACTATE, PLASMA [CHEM] Stat Lab 08/30/19 18:52 Uncollected URINE DRUG SCREEN Stat Lab 08/30/19 18:52 Uncollected 0.9% Sodium Chloride Inj [Ns] 1,000 ml Med 08/30/19 18:53 Active IV 999 mls/hr Albuterol 2.5MG/Ipratrop 0.5MG [Duoneb (A & A)] Med 08/30/19 19:09 Once 3 ml INH NOW ONE Aerosol Treatments Routine Oth 08/30/19 19:09 Ordered Aerosol Treatments Stat Oth 08/30/19 19:09 Ordered Result Diagrams: 08/30/19 19:05 08/30/19 19:05 - XRAY 1 XRAY: Bilateral XRAY Study: Chest Impression: Abnormal, See EMR Report XRAY Interpretation: right ll PNA, Left nodule. follow up ct - CONSULTS/PCP/HOSPITALIST Notification #1 *Consult/PCP/Hospitalist*: dr gonsales Time Discussed: 18:50 Reason/Comments: pneumonia Consult Disposition: Admit Departure - Departure Date of Disposition Decision: 08/30/19 Time of Disposition Decision: 20:16 DIAGNOSIS: Pneumonia Qualifiers: Pneumonia type: aspiration pneumonia Aspiration pneumonia type: unspecified Laterality: right Lung location: lower lobe of lung Qualified Code(s): J69.0 - Pneumonitis due to inhalation of food and vomit Disposition: ADMITTED INPATIENT 09 Certified Medical Emergency: Emergent Condition: Good Additional Instructions: ED Follow Up Instructions: You have been treated by a care provider in the Emergency Department. These instructions are being provided to you so you can have an understanding of how to care for yourself upon discharge. Upon discharge from the Emergency Department, you are responsible for making arrangements for follow-up care by a physician of your choice. Take all prescribed medications as directed. Return to the Emergency Department immediately for any new or worsening symptoms. You may call the Physician Referral phone number at [phone] to obtain a list of Physicians who are taking new patients. Referrals and Follow-Ups: None,PCP [Primary Care Provider] - - Critical Care Note This patient required my direct & personal management of CC.: No Attestation - Physician/ LUZ Attestation Patient care was provided by Advanced Practice Provider:: Yes Advanced Practice Provider:: Schuyler Little Advanced Practice Provider documentation review:: The Mid-level provider documentation, treatment plan and medical decision making was reviewed by the physician who agrees with all treatment and medical decision making by the MLP. The physician spent face to face time with patient:: No Advanced Practice Provider documentation review:: Supervising physician onsite and consulted in the evaluation and care of this patient. The physician did not have a face to face encounter with the patient.
[2019-08-30 19:51] LABS: BASO# 0.03 X1000 (0.0-0.2); BASO% 0.3 % (0.0-0.8); HEMATOCRIT 46.2 % (42.0-52.0); HEMOGLOBIN 15.2 g/dL (14.0-18.0); IMM GRAN# 0.02 X1000 (0.0-0.04); IMM GRAN% 0.2 % (0.0-0.5); LYMPH# 1.54 X1000 (1.2-3.4); LYMPH% 15.6 % (20.5-51.1); MCH 28.5 PG (27-31); MCHC 32.9 g/dL (33-37); MCV 86.5 FL (81-99); MONO# 0.64 X1000 (0.11-0.59); MONO% 6.5 % (1.7-9.3); MPV 10.8 FL (7.4-10.4); NEUT# 7.52 X1000 (1.4-6.5); NEUT% 76.4 % (42.2-75.2); PLT 204 X1000 (130-400); RBC 5.34 XMIL (4.7-6.1); RDW 13.3 % (11.5-14.5); WBC 9.85 X1000 (4.8-10.8)
[2019-08-30 19:58] LABS: AGAP 12; ALB/GLOB RATIO 1.3; ALKALINE PHOSPHATASE 97 U/L (32-122); BUN 13 mg/dL (8-22); CALCIUM 9.1 mg/dL (8.8-10.2); CHLORIDE 106 mmol/L (98-107); COSMO 283; CREATININE 1.2 mg/dL (0.7-1.2); ESTIMATED GFR > 60; GLUCOSE 135 mg/dL (70-104); GOT 16 U/L (10-34); GPT 23 U/L (10-44); POTASSIUM 4.2 mmol/L (3.5-5.1); SODIUM 141 mmol/L (136-145); TCO2 23 mmol/L (25-35); TOTAL BILIRUBIN 0.64 mg/dL (0.20-1.00); TOTAL PROTEIN 7.1 g/dL (6.3-8.3)
--- NOTE | 2019-08-30 20:04 | Diag Imaging Result Doc PS360 ---
EXAM: CHEST-2 VIEWS - 08/30/2019 HISTORY: aspiration? TECHNIQUE: Chest two views COMPARISON: 06/25/2017 FINDINGS: Heart size is normal. There is mild tortuosity of the thoracic aorta. There is apparent mild infiltrate at the right lower lobe. There is apparent approximately 2 cm right lower lobe nodular opacity. The remainder the lungs appear essentially clear. There is no substantial pleural effusion or pneumothorax identified. IMPRESSION: Mild right lower lobe infiltrate. Apparent approximately 2 cm right lower lobe nodular opacity. Follow-up CT thorax is recommended. Electronically signed by Paul Palomo 08/30/2019 8:01 PM
[2019-08-30] MEDS: LEVAQUIN 750 MG/D5W 750 MG/150 ML IVPB IV SCH (21:00)
[2019-08-30] MEDS: ZOSYN 3.375 GM in NS 50 ML IV SCH (21:00)
[2019-08-30 21:41] LABS: UR AMPHETAMINES QUAL NONE DETECTED (NONE DETECT); UR BARBITUATES QUAL NONE DETECTED (NONE DETECT); UR BENZODIAZEPIN QUAL NONE DETECTED (NONE DETECT); UR CANNABINOIDS QUAL PRESUMPTIVE POSITIVE (NONE DETECT); UR COCAINE QUAL NONE DETECTED (NONE DETECT); UR METHADONE QUAL NONE DETECTED (NONE DETECT); UR OPIATES QUAL NONE DETECTED (NONE DETECT); UR OXYCODONE QUAL NONE DETECTED (NONE DETECT); UR PCP QUAL NONE DETECTED (NONE DETECT)
--- NOTE | 2019-08-30 21:43 | Diag Imaging Result Doc PS360 ---
EXAM: CT THORAX W/CONTRAST - 08/30/2019 HISTORY: pulm nodule TECHNIQUE: CT thorax with intravenous contrast COMPARISON: 08/30/2019 chest radiographs FINDINGS: There is a 1.7 cm noncalcified nodular lesion at the lateral right lower lobe. This has slightly irregular margins. There or no other pulmonary nodular lesions identified. There is some subsegmental atelectasis at the bilateral lower lobe. There is no consolidation, pleural effusion, or pneumothorax identified. There is a nonspecific small right hilar lymph node. There are nonspecific small mediastinal lymph nodes. There are no substantially enlarged lymph nodes identified. Included sections of the upper abdomen show fatty infiltration of the liver. There is no focal liver lesion identified. There is a small cyst at the visualized upper left kidney. There are postsurgical changes of cholecystectomy. IMPRESSION: 1.7 cm noncalcified nodule at right lower lobe. Considerations include atypical infection, such as histoplasmoma, and malignancy. Subsegmental atelectasis at bilateral lower lobes. No discrete pneumonia. This exam was performed using automated exposure control, adjustment of mA or kV according to patient size, and/or use of iterative reconstruction technique. Electronically signed by Paul Palomo 08/30/2019 9:40 PM
[2019-08-30 22:28] LABS: URINE SOURCE CLEAN CATCH
[2019-08-30 22:38] LABS: BILIRUBIN URINE NEGATIVE (NEGATIVE); BLOOD URINE NEGATIVE (NEGATIVE); COLOR YELLOW; GLUCOSE URINE NEGATIVE (NEGATIVE); KETONE URINE NEGATIVE (NEGATIVE); LEUKOCYTES URINE NEGATIVE (NEGATIVE); NITRITE URINE NEGATIVE (NEGATIVE); PH URINE 6.5; PROTEIN URINE NEGATIVE (NEGATIVE); TURBIDITY URINE CLEAR (CLEAR); UROBILINOGEN URINE NORMAL (NORMAL)
[2019-08-30 22:40] LABS: UR EPITHELIAL CELLS <10 /HPF (<10); URINE BACTERIA NEGATIVE /HPF; URINE RBC <10 /HPF (<10); URINE WBC <10 /HPF (<10)
[2019-08-31] MEDS: ZOSYN 3.375 GM in NS 50 ML IV SCH ×4 (02:48→20:01)
[2019-08-31] MEDS ORDERED: TYLENOL PO PRN (03:37)
[2019-08-31] MEDS: NS 1,000 ML IV SCH ×2 (04:45→15:48)
[2019-08-31 05:45] LABS: BASO# 0.03 X1000 (0.0-0.2); BASO% 0.3 % (0.0-0.8); EOS# 0.18 X1000 (0.0-0.7); HEMATOCRIT 42.7 % (42.0-52.0); IMM GRAN# 0.03 X1000 (0.0-0.04); IMM GRAN% 0.3 % (0.0-0.5); LYMPH# 2.49 X1000 (1.2-3.4); LYMPH% 27.6 % (20.5-51.1); MCH 28.6 PG (27-31); MCHC 32.8 g/dL (33-37); MCV 87.3 FL (81-99); MONO# 0.72 X1000 (0.11-0.59); MPV 10.3 FL (7.4-10.4); NEUT# 5.56 X1000 (1.4-6.5); NEUT% 61.8 % (42.2-75.2); PLT 187 X1000 (130-400); RBC 4.89 XMIL (4.7-6.1); RDW 13.4 % (11.5-14.5); WBC 9.01 X1000 (4.8-10.8)
--- NOTE | 2019-08-31 06:01 | EKG Report ---
Test Performed on : 08/31/2019 05:56:15 AM Test Reason : AMS,Hx of recent zyprexa overdose Blood Pressure : / mmHG Vent. Rate : 079 BPM Atrial Rate : 079 BPM P-R Int : 168 ms QRS Dur : 096 ms QT Int : 392 ms P-R-T Axes : 044 013 039 degrees QTc Int : 449 ms Normal sinus rhythm. Cannot rule out Anterior infarct , age undetermined Abnormal ECG When compared with ECG of 29-AUG-2019 10:20, (Unconfirmed) Vent. rate has decreased BY 55 BPM Unconfirmed Result
[2019-08-31 06:04] LABS: AGAP 11; BUN 15 mg/dL (8-22); CALCIUM 8.9 mg/dL (8.8-10.2); CHLORIDE 107 mmol/L (98-107); COSMO 285; CREATININE 1.2 mg/dL (0.7-1.2); ESTIMATED GFR > 60; GLUCOSE 113 mg/dL (70-104); POTASSIUM 3.8 mmol/L (3.5-5.1); SODIUM 142 mmol/L (136-145); TCO2 24 mmol/L (25-35)
--- NOTE | 2019-08-31 06:38 | Diag Imaging Result Doc PS360 ---
CT HEAD W/O CONTRAST - 08/31/2019 INDICATION: AMS COMPARISON: None FINDINGS: The ventricles and sulci are normal in size and contour. No intracranial mass or hemorrhage. The skull is intact. The sinuses mastoids and middle ears are clear. IMPRESSION: Negative exam. This exam was performed using automated exposure control, adjustment of mA or kV according to patient size, and/or use of iterative reconstruction technique Electronically signed by Bryant Pastrana 08/31/2019 6:36 AM
[2019-08-31 09:50] LABS: PROTIME 13.3 Seconds (11.0-16.0)
[2019-08-31 09:51] LABS: PTT 29.9 Seconds (22.3-41.8)
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
[2019-08-31] MEDS: DUONEB (A & A) INH PRN ×2 (11:29→16:13)
--- NOTE | 2019-08-31 14:22 | PROVIDER PROGRESS NOTE ---
Progress Note Pulmonary additional note: CT chest was discussed with Dr. Parnell. He mentioned that patient had similar lesion on CXR in 2007. He highly believes it is the same lesion and recommends observation with imaging.
[2019-08-31] MEDS ORDERED: PREDNISONE PO PRN (16:00)
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
--- NOTE | 2019-08-31 17:10 | PULMONOLOGY CONSULTATION ---
DATE: 08/31/2019 REQUESTING PROVIDER: STEFAN Nieto REASON FOR CONSULTATION: Pneumonia, pulmonary nodule. HISTORY OF PRESENT ILLNESS: This is a 64-year-old male who apparently was just discharged from the ICU on 08/30/2019. He had a suicide attempt on 08/29/2019, taking about 40 tablets of 5 mg of olanzapine. After discharge home the patient apparently stayed confused with some odd behavioral and have some mild shortness of breath. The patient was sent back to the ER by his . Chest x-ray showed mild right lower lobe infiltrates with possible right lower lobe nodule opacities measuring about [address] scan was performed which revealed or 1.7, noncalcified nodule of the right lower lobe with considerations of atypical infections such as histoplasmoma and malignancy, subsegmental atelectasis at the bilateral lower lobes, but no discrete pneumonia. Patient currently is sitting at the edge of the bed with patient's at the bedside. He states he is fine and he has no complaint. He reports no cough, wheezing, chills, fever, bowel habit change, nausea, urination discomfort, chest pain or palpitation. No confusion noted at this time, but patient is very easy to get agitated during my encounter. He keeps stating during my examination that he needs to get out of here so he can start his new job. The patient's at the bedside had to keep calming patient down. PAST MEDICAL/SURGICAL HISTORY: 1. Bipolar disease disorder. 2. Hyperlipidemia. 3. Hypertension. 4. Gastroesophageal reflux disease. 5. Recent drug overdose with suicidal attempt. 6. Status post left middle left middle toe amputation. 7. Cholecystectomy. 8. Benign tumor removal on left clavicular area. FAMILY HISTORY: Positive for heart disease, diabetes, and leukemia. SOCIAL HISTORY: Patient lives at home with his family. He has 1-year of smoking history and quit 14 years ago. He uses marijuana occasionally to help control his bipolar disorder. The last time marijuana use was on 08/04/2019. He reports no illicit drug use. He drinks occasionally but never gets drunk. ALLERGIES: No known drug allergies. REVIEW OF SYSTEMS: A 10-point review of systems was conducted and the pertinent is listed within the HPI, otherwise noncontributory. PHYSICAL EXAMINATION: Vital Signs: Temperature 97.8 degrees, blood pressure 154/99, pulse 100, respiratory rate 20, oxygen saturation 96% on room air. General: Well- developed, well-nourished sitting at the edge of the bed with agitation at times, but overall he is kind and cooperative. HEENT: Atraumatic, normocephalic. Trachea midline. Mucosa pink and moist. Pupils: Equal, round, reactive to light. Respiratory: Even and unlabored. Symmetrical excursion. Clear to auscultation bilaterally with good air entry bilaterally. Cardiovascular: Regular rate and rhythm with S1 and S2 appreciated. Gastrointestinal: Soft, nontender, nondistended. Normoactive bowel sounds in all 4 quadrants. Extremities: No pedal edema. No cyanosis. No clubbing. Left middle toe amputation noted. Neurologic: Alert, oriented x3. Speech fluent. Follows commands. Easy to get agitated. ASSESSMENT: 1. Right lower lobe nodule measuring 1.7 cm, noncalcified, slightly irregular margins with the possibility of atypical infection such as histoplasmoma and malignancy. 2. Bipolar disorder with agitation. 3. Recent suicidal attempt with Zyprexa overdose. PLAN: 1. Dr. Mari already reviewed CT chest and discussed with radiologist Dr. Pastrana. He mentioned that the patient has similar lesion on the chest x-ray back in 2007, so he highly believed that it is the same lesion and recommends observation with imaging. 2. We recommend outpatient PET scan followup. 3. Antibiotics including Levaquin and Zosyn has been ordered since admission. 4. Bronchodilators has been scheduled to 6 hours as needed. 5. Further recommendations pending hospital course. Thank you for the courtesy of this consult. Dr. Mari did the examination evaluation management and orders. STEFAN did the dictation for Dr. Mari according to his direction. Dictated by STEFAN Valles for Genaro Mari MD cc: STEFAN Valles MD [facility]ITAL[facility]
[2019-08-31] MEDS ORDERED: LIPITOR PO SCH (21:00)
[2019-08-31] MEDS: LEVAQUIN 750 MG/D5W 750 MG/150 ML IVPB IV SCH (21:50)
[2019-09-01] MEDS: ZOSYN 3.375 GM in NS 50 ML IV SCH (02:52)
[2019-09-01] MEDS ORDERED: PRILOSEC PO SCH (07:00)
[2019-09-01] MEDS ORDERED: LATUDA PO SCH (09:00)
[2019-09-01] MEDS ORDERED: PROVIGIL PO SCH (09:00)
[2019-09-01] MEDS ORDERED: LAMICTAL PO SCH (09:00)
[2019-09-01 10:59] VITALS: BP 125/81
--- NOTE | 2019-09-01 13:11 | DISCHARGE SUMMARY ---
ADMISSION DATE: 08/30/2019 DISCHARGE DATE: 09/01/2019 HISTORY: Patient was readmitted on 08/30/2019. This is a 64-year-old, he is a patient of Dr. Luke. He was just discharged from ICU on 08/28, and came back on 08/29. He was admitted on 08/28. Reportedly, he took 40 Zyprexa 5 mg tablets, and was pretty lethargic. He woke up the next morning, and wanted to go home, and really insisted on going home. He denied any suicidal ideation or homicidal ideation. We sent him home on his home medications. He came back that evening with mild hypoxia. Chest x-ray showed mid right lower lobe infiltrate approximately 2 cm right lower lobe nodule opacity. CT scan was obtained, and it did show 1.7 noncalcified nodule in the right lower lobe, and patient was treated for pneumonia. His breathing improved. Pulmonary evaluated and felt this nodule was probably old, and will follow up as an outpatient. He has underlying bipolar disorder with agitation in the past so recommended outpatient follow-up. He is on Levaquin and Zosyn which has been ordered since his admission. He appeared to have good clearance of x-ray. Cultures did not reveal any growth on blood cultures. I am going to put him on some Levaquin 750 mg for another 7 days, and we will discharge him home. We will put him back on his home medications. We will put him back on his home medications so on amlodipine once a day. He is on Abilify 5 mg a day and Nuvigil which is 200 mg every morning, Wellbutrin 100 mg p.o. every morning, Avapro 1 tablet a day. He is taking prednisone once a day and Inderal half of a tablet. He is on Latuda 60 mg daily, Lamictal 200 mg a day, and Lipitor 10 mg at bedtime. cc: Keon Gary MD MTDD
== END 2019-09-01 14:16 | disposition home or self-care (01) | DRG 178 ==
LOC: ED 18:23 → SUATTDRO 18:24 → EDIPHOLD 23:18 → 3N 08-31 13:56
PROVIDERS: ATTEND Emergency Medicine